=== PATIENT | female | born 1980 | race Caucasian/White ===

== ENCOUNTER 2023-12-25 09:09 | Emergency (ER) | payer MEDICAID ==
[~2023-12-25] VITALS: Ht 162.6 cm; Wt 81.8 kg
[2023-12-25 09:15] VITALS: TEMP 97.8
[2023-12-25] MEDS: FAMOTIDINE 20 MG TABLET PO ONE (10:21)
[2023-12-25] MEDS ORDERED: FAMO20 PO (10:26)
[2023-12-25] MEDS ORDERED: CETI-450 PO (10:26)
[2023-12-25] MEDS: CETIRIZINE HCL 10 MG TABLET PO ONE (10:41)
[2023-12-25 10:48] VITALS: BP 145/64; PULSE 61; RESP 18; O2SAT 98
== END 2023-12-25 11:57 | disposition home or self-care (01) ==
LOC: EMS 09:09
DX: T78.40XA Allergy, unspecified, initial encounter (principal); Z98.890 Other specified postprocedural states; X58.XXXA Exposure to other specified factors, initial encounter
CPT/HCPCS: 99283

== ENCOUNTER 2024-08-27 08:21 | Emergency (ER) | payer SELFPAY ==
[~2024-08-27] VITALS: Ht 162.6 cm; Wt 81.8 kg
[~2024-08-27 08:21] MED LIST: CETI-432 PO; FAMO20 PO
[2024-08-27 08:23] VITALS: BP 125/86; PULSE 63; RESP 18; TEMP 98.4; O2SAT 99
[2024-08-27] MEDS ORDERED: CEPH-558 PO (08:47)
[2024-08-27] MEDS ORDERED: DIPH50CA37 PO (08:47)
[2024-08-27] MEDS: CEPHALEXIN MONOHYDRATE 500 MG CAPSULE PO ONE (08:54)
== END 2024-08-27 08:57 | disposition home or self-care (01) ==
LOC: EMS 08:22
DX: L03.116 Cellulitis of left lower limb (principal); T63.301A Toxic effect of unspecified spider venom, accidental (unintentional), initial encounter; Z98.890 Other specified postprocedural states; X58.XXXA Exposure to other specified factors, initial encounter
CPT/HCPCS: 99283